=== PATIENT | male | born 1995 | race Caucasian/White ===

== ENCOUNTER 2025-03-10 07:28 | Day surgery (SDC) | payer OTHER, SELFPAY ==
[2025-03-10] VITALS (11 sets, daily range): BP systolic 131–149; BP diastolic 75–92; PULSE 58–90; RESP 12–18; TEMP 36.3–37.1; O2SAT 96–100; BMI 27.7
[2025-03-10] MEDS: LACTATED RINGERS 1000 ML 1,000 ML 100 ML IV (08:30)
[2025-03-10] MEDS: SODIUM CHLORIDE 0.9 % (FLUSH) 10 ML SYRINGE IVF (08:33)
[2025-03-10] MEDS: CLINDAMYCIN 900 MG/50 ML-D5W IVPB (09:27)
[2025-03-10] MEDS: BUPIVACAINE 0.25% 30 ML INJECTION (10:37)
--- NOTE | 2025-03-10 11:10 | P.ANES_ITS ---
Anesthesia Charges Start Date/Time Anesthesia Start Date: 03/10/25 Anesthesia Start Time: 09:15 Stop Date/Time Anesthesia Stop Date: 03/10/25 Anesthesia Stop Time: 11:06 Coding CPT Codes CPT Codes: ANESTH REPAIR OF HERNIA - 48415 ([id number]) P1 - NORMAL HEALTHY PATIENT, QK - PLASTIC TUBING INSULATION SUPERVISOR 2-4 CNCRNT ANES PROC, QX - OPERATIONS DIRECTOR SVLily W/ MED DIRECTION
--- NOTE | 2025-03-10 11:10 | W.ANESCHARGE ---
Anesthesia Charges Start Date/Time Anesthesia Start Date: 03/10/25 Anesthesia Start Time: 09:15 Stop Date/Time Anesthesia Stop Date: 03/10/25 Anesthesia Stop Time: 11:06 Coding CPT Codes CPT Codes: ANESTH REPAIR OF HERNIA - 62796 ([id number]) P1 - NORMAL HEALTHY PATIENT, QK - DIET AIDE 2-4 CNCRNT ANES PROC, QX - APPLICATION PACKAGING SPECIALIST SVLily W/ MED DIRECTION
--- NOTE | 2025-03-10 11:13 | P.ANES_ITS ---
Anesthesia Charges Start Date/Time Anesthesia Start Date: 03/10/25 Anesthesia Start Time: 09:15 Stop Date/Time Anesthesia Stop Date: 03/10/25 Anesthesia Stop Time: 11:06 Coding CPT Codes CPT Codes: ANESTH SURGERY OF ABDOMEN - 45908 ([id number]) QK - KITCHEN UTILITY ASSOCIATE 2-4 CNCRNT ANES PROC, QX - STITCHER OPERATOR SVC W/ MD MED DIRECTION, P1 - NORMAL HEALTHY PATIENT
--- NOTE | 2025-03-10 11:13 | W.ANESCHARGE ---
Anesthesia Charges Start Date/Time Anesthesia Start Date: 03/10/25 Anesthesia Start Time: 09:15 Stop Date/Time Anesthesia Stop Date: 03/10/25 Anesthesia Stop Time: 11:06 Coding CPT Codes CPT Codes: ANESTH SURGERY OF ABDOMEN - 12228 ([id number]) QK - HAIR OR BEAUTY SALON ASSISTANT 2-4 CNCRNT ANES PROC, QX - SHIP'S OFFICER SVC W/ MD MED DIRECTION, P1 - NORMAL HEALTHY PATIENT
[2025-03-10] MEDS: ACETAMINOPHEN 325 MG TABLET 650 MG PO (11:50)
--- NOTE | 2025-03-10 12:30 | P.GSOP_ITS ---
Operative Note Date of procedure: 03/10/25 Pre-op diagnosis: Right inguinal hernia Post-op diagnosis: Same, indirect hernia Type of Procedure: Laparoscopic right inguinal hernia repair Indications: Patient is a 29-year-old male who presented to clinic with a symptomatic right inguinal hernia. Please see consultation note regarding full discussion and treatment options. Risks and benefits of operative intervention were discussed at length with the patient. Risks included but was not limited to: Bleeding, infection, risk of damage to surrounding structures, possible need for additional procedures, possible need to convert to an open operation and postoperative complications such as pneumonia, pulmonary emboli or OH. All questions and concerns were addressed with the patient agreeing to proceed. Procedure Description: After discussing the risks and benefits of the procedure, the patient signed informed consent.? The operative site was marked and the patient was brought to the operating room and placed on the operating table in supine position.? Care was taken to pad the patient's pressure points.?? The patient was then intubated by anesthesia.?? The operative site was then prepped and draped in the usual sterile fashion.? A time-out was then performed. A curvilinear incision was made below the umbilicus. Dissection was carried down to subcutaneous tissue until the anterior rectus fascia was encountered. This was incised off the midline. The rectus muscles were then retracted exposing the posterior fascia. A space maker port with a dissecting balloon was then introduced. The preperitoneal space was inflated under direct vision. The balloon was then removed and the preperitoneal space insufflated. A 10 mm 30 degree scope was then advanced and the area was surveyed for bleeding. Dissection began on the right side. Truman's ligament and the pubic bone was ex posed medially. Following this dissection was carried out laterally. A indirect defect was noted. The sac was dissected free from the cord structures using a combination of sharp and blunt dissection. During this dissection a small tear in the sac was created near the cord structures. This was closed with several 5 mm clips. Once the sac was completely reduced, the cord structures were dissect ed circumfrentially and a piece of Parietex mesh for the appropriate side was placed into the abdomen. This was positioned around the cord structures. A Tacker was used to attach the mesh medially at Truman's ligament. Once this was completed the sac was placed on top of the mesh and the preperitoneal space desufflated under direct vision. The ports were removed. The intra-abdominal CO2 was evacuated by sharply entering the abdomen through the umbilical port and incising the posterior fascia. The anterior fascia from the infraumbilical port was closed with 0 Vicryl. The skin incisions were closed with absorbable subcuticular suture. Sterile dressings were then applied. The scrotum was examined to ensure that both testicles were down. Instrument sponge and needle counts were correct at the end of the case. Findings: Right inguinal hernia, indirect Anesthesia: MICHAEL Surgeon: Cristina Babb MD Estimated blood loss (mL): 15 Condition: stable Disposition: PACU
--- NOTE | 2025-03-10 12:30 | W.PM.H&PU ---
History & Physical Update History & Physical Update H&P Reviewed and patient assessed: No changes noted
--- NOTE | 2025-03-10 12:59 | SUR.PHASEII ---
1145: Patient alert and oriented on entry to Phase II. Patient states pain is not unbearable. Patient educated on pain management options, Hydrocodone-acetaminophen versus acetaminophen. Patient verbalized understanding and prefers 650 mg acetaminophen.
--- NOTE | 2025-03-10 13:03 | SUR.PHASEII ---
1240: Patient independently ambulatory to restroom. Patient voided. Pt returned to room independently ambulatory.
== END 2025-03-10 12:55 | disposition home or self-care (01) ==
PROVIDERS: Visit Provider Surgery
PROC: (CPT 49650; principal; 2025-03-10 10:00)
DX: K40.90 Unilateral inguinal hernia, without obstruction or gangrene, not specified as recurrent (principal)
CPT/HCPCS: 49650; 00830; 00840; 00860; A9270; C1781; J0330; J0665; J0736; J1100; J1885; J2405; J2704; J3010; J3490; J7120